=== PATIENT | female | born 1995 | race Two or more races ===

== ENCOUNTER 2020-08-28 00:39 | Emergency (ER) | payer OTHER ==
[~2020-08-28] VITALS: Ht 157.5 cm; Wt 77.1 kg
[2020-08-28] MEDS ORDERED: ACETAMINOPHEN650 M2 PO (07:22)
[2020-08-28] MEDS ORDERED: ORPHENADRINE C100 MG PO (07:22)
== END 2020-08-28 07:52 | disposition home or self-care (01) ==
LOC: ER 00:39
DX: O26.891 Other specified pregnancy related conditions, first trimester (principal); M54.5 Low back pain; Z3A.08 8 weeks gestation of pregnancy

== ENCOUNTER 2021-05-04 17:54 | Emergency (ER) | payer OTHER ==
[~2021-05-04] VITALS: Ht 157.5 cm; Wt 70.3 kg
[~2021-05-04 17:54] MED LIST: ACETAMINOPHEN650 M2 PO; ORPHENADRINE C100 MG PO
[2021-05-04] MEDS ORDERED: DICLOFENAC SODI75 MG PO (19:40)
== END 2021-05-04 20:32 | disposition home or self-care (01) ==
LOC: ER 17:54
DX: S60.222A Contusion of left hand, initial encounter (principal); W18.30XA Fall on same level, unspecified, initial encounter; Y93.9 Activity, unspecified; Y92.019 Unspecified place in single-family (private) house as the place of occurrence of the external cause

== ENCOUNTER 2022-07-24 17:02 | Emergency (ER) | payer OTHER ==
[~2022-07-24] VITALS: Ht 157.5 cm; Wt 74.8 kg
[~2022-07-24 17:02] MED LIST changes: +DICLOFENAC SODI75 MG PO
== END 2022-07-24 21:45 | disposition home or self-care (01) ==
LOC: ER 17:02
DX: R10.32 Left lower quadrant pain (principal); N83.202 Unspecified ovarian cyst, left side